=== PATIENT | male | born 1995 | race American Indian/Alaskan Native ===

== ENCOUNTER 2019-12-12 17:25 | Emergency (ER) | payer OTHER ==
[2019-12-12 17:31] VITALS: BP 133/79
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
== END 2019-12-12 20:20 | disposition left against medical advice (07) ==
LOC: ED 17:25
DX: R51 Headache (principal); M25.572 Pain in left ankle and joints of left foot; V89.2XXA Person injured in unspecified motor-vehicle accident, traffic, initial encounter; Y93.89 Activity, other specified; Y92.89 Other specified places as the place of occurrence of the external cause; Y99.8 Other external cause status
CPT/HCPCS: 99283